=== PATIENT | female | born 1960 | race Caucasian/White ===

== ENCOUNTER 2016-12-27 08:31 | Emergency (ER) | payer OTHER ==
[~2016-12-27] VITALS: Ht 160 cm; Wt 68.8 kg
[2016-12-27 08:37] VITALS: TEMP 36.6; Ht 160 cm; Wt 68.8 kg
--- NOTE | 2016-12-27 08:55 | EMERGENCY ROOM VISIT NOTE ---
History Report prepared by Chacorta: Bear Perez Under the Supervision of: Dr. Marcello Dahl M.D. First contact with patient: 08:45 Chief Complaint: CHEST PAIN Stated Complaint: CHEST PAIN/HEAVINESS, NAUSEA Nursing Triage Summary: Patient states approx 0100 while sleeping she woke up with chest pain "In my back...and severe heartburn". Point to pain in right upper back and right chest. Franklin nauseous, but it passed quickly. Franklin like there was pressure on her chest. Tried to sleep, started sweating, thought maybe menopause. States she still has the chest pressure (right chest) "not as much in my back". History of Present Illness The patient is a 56 year old female who presents to the Emergency Room with complaints of an episode of chest pain that occurred around 0100 this morning. She currently says the pain is not bad, and the only pain she has is in her back. The patient says that she woke up almost in a hot flash, and the pain started in her back. The pain then radiated to her chest and she felt a heavy feeling in her chest. She also felt nauseous and had chills. The patient notes that she has been getting headaches recently. The patient thought she had acid reflux, so she took Tums, but then she felt like vomiting. The feeling shortly went away, and she was then able to go to bed. The patient did start sweating when she went back to sleep. She denies any vomiting or leg pain. The patient has no history of heart or lung problems. The patient has a history of hypertension, and the patient's says the patient may have had a TIA in the past. The patient does not smoke and is not diabetic. She notes no problems historically with indigestion, and she does not think she ate anything yesterday that would cause indigestion. The patient does not get her period anymore. Source of History: patient, family Onset: Around 0100 this morning Position: chest Symptom Intensity: lasted 1 hour Timing: other (episode) Associated Symptoms: + back pain, + chills, + nausea, No vomiting Note: Associated symptoms: Heavy feeling in chest. Denies leg pain. Review of Systems All systems have been listed, reviewed, and are negative other than those previously mentioned. Please see Additional Medical History Sheet. Past Medical & Surgical Surgical Problems: (1) Hx of appendectomy (2) Hx of tonsillectomy Family History Cancer Diabetes mellitus Gallbladder disease Heart disease Hypertension Kidney disease Lung disease Social History Smoking Status: Never Smoker Marital Status: Housing Status: lives with family Occupation Status: employed Current/Historical Medications Scheduled Estrog Conj/Medryoxyprog Acet (Prempro 0.3MG/1.5MG), 1 TAB PO HS Scheduled PRN Ibuprofen Tab (Motrin), 600 MG PO Q6H PRN for Pain Allergies Coded Allergies: Nitrofurantoin (Unverified Allergy, Severe, VOMITTING/BLOOD IN STOOL, 12/27) Nickel (Unverified Allergy, Mild, RASH, 12/27/16) Uncoded Allergies: SULFA DRUGS (Allergy, Intermediate, HIVES, 12/27/16) BURNING, BLISTERING, RASH Physical Exam Vital Signs Date Time Temp Pulse Resp B/P Pulse Ox O2 Delivery O2 Flow Rate FiO2 12/27/16 13:54 83 18 140/83 97 12/27/16 11:31 61 138/79 12/27/16 11:00 57 18 145/77 97 Room Air 12/27/16 09:02 99 Room Air 12/27/16 09:01 88 16 170/79 100 Room Air 12/27/16 08:54 61 12/27/16 08:41 97 12/27/16 08:37 36.6 66 18 191/85 97 Room Air Physical Exam GENERAL: Patient awake, alert, oriented x 3. Patient follows commands. Patient does not appear toxic. Patient is adequately hydrated and well- nourished. SKIN: No erythema, pallor, cyanosis or rash HEENT: Normal head, pupils equal, reactive to light and accommodation. Oral cavity and posterior pharynx appear normal. Neck: Without adenopathy, no neck vein distention. LUNGS: Clear to auscultation. No wheezes, no rales, no rhonchi. HEART: No murmurs. No gallops. No rubs ABDOMEN: No masses, no rebound, no hepatomegaly or splenomegaly. EXTREMITIES: No signs of trauma. No pedal or pretibial edema. No calf or thigh tenderness. NEUROLOGIC: Cranial nerves II-XII within normal limits. No gross motor sensory function deficits. Medical Decision & Procedures ER Provider Diagnostic Interpretation: X ray results are stated below per my interpretation and the radiologist's interpretation. CHEST 2 VIEWS ROUTINE CLINICAL HISTORY: Atypical chest pain COMPARISON STUDY: No previous studies for comparison. FINDINGS: The cardiac and mediastinal contours are normal. There is no evidence of focal pulmonary consolidation. There is no evidence of failure. No pleural effusions are visualized.[ IMPRESSION: No active disease in the chest. Electronically signed by: Richi Milligan M.D. 12/27/2016 10:22 AM Dictated Date/Time: 12/27/2016 10:22 AM Laboratory Results 12/27/16 09:05 12/27/16 09:05 Test 12/27/16 09:05 12/27/16 11:02 Red Blood Count 4.58 M/uL (4.2-5.4) Mean Corpuscular Volume 96.3 fL (80-100) Mean Corpuscular Hemoglobin 33.0 pg (25-34) Mean Corpuscular Hemoglobin Concent 34.2 g/dl (32-36) RDW Standard Deviation 47.0 fL (36.4-46.3) RDW Coefficient of Variation 13.4 % (11.5-14.5) Mean Platelet Volume 10.0 fL (7.4-10.4) Anion Gap 10.0 mmol/L (3-11) Est Creatinine Clear Calc Drug Dose 69.6 ml/min Estimated GFR () 90.0 Estimated GFR (Non- 77.7 BUN/Creatinine Ratio 17.1 (10-20) Calcium Level 8.7 mg/dl (8.5-10.1) Bedside Troponin I 0.000 ng/ml (0-0.045) Laboratory results as stated above per my review. Medications Administered Medications (Trade) Dose Ordered Sig/Brunilda Route Start Time Stop Time Status Last Admin Dose Admin Perflutren Lipid Microsphere (Definity) 2 ml ONE ONCE IV 12/27/16 13:32 12/27/16 13:33 DC 12/27/16 13:32 2 ML ECG Indication: chest pain Rate (beats per minute): 62 Rhythm: normal sinus Findings: no acute ischemic change, no ectopy ED Course 0846: Past medical records reviewed. The patient was evaluated in room A4B. A complete history and physical examination was performed. 1339: I reevaluated the patient she passed the echo stress test. 1405: Upon reevaluation, the patient appeared to have improvement of her symptoms. I discussed today's findings with her. She verbalized agreement of the treatment plan. She was discharged home. Medical Decision Differential diagnosis: Etiologies such as cardiac ischemia, aortic dissection, pulmonary embolism, pneumonia, pneumothorax, musculoskeletal, infections, pericarditis, myocarditis , esophageal rupture, gastrointestinal, as well as others were entertained. Multiple labs, EKG and imaging were obtained. Please see above. The patient has no EKG or cardiac marker changes. The patient had atypical chest pain. She was sent for stress test which she passed. I spoke with Dr. Josué Moran regarding her test. She did have some other symptoms but not chest related. I believe the patient can safely return home. She will need follow-up by her family physician. Impression Primary Impression: Substernal precordial chest pain Scribe Attestation The scribe's documentation has been prepared under my direction and personally reviewed by me in its entirety. I confirm that the note above accurately reflects all work, treatment, procedures, and medical decision making performed by me. Departure Information Dispostion Home / Self-Care Prescriptions Ibuprofen Tab (MOTRIN) 600 Mg Tab 600 MG PO Q6H Y for Pain, #20 TAB Prov: Marcello Dahl M.D. 12/27/16 Referrals No Doctor, Assigned (PCP) Patient Instructions ED Chest Pain Atypical Unkn Cause, My [facility] Additional Instructions Follow-up with your family physician within the next 10 days. 600 mg ibuprofen every 6 hours as needed for pain.
[2016-12-27 09:02] VITALS: O2SAT 99
[2016-12-27 09:14] LABS: HEMATOCRIT 44.1 % (37-47); MEAN CELL VOLUME 96.3 fL (80-100); MEAN CORPUSCULAR HGB CONC 34.2 g/dl (32-36); PLATELET COUNT 212 K/uL (130-400); RED BLOOD COUNT 4.58 M/uL (4.2-5.4); WHITE BLOOD COUNT 7.06 K/uL (4.8-10.8)
[2016-12-27 09:30] LABS: BUN/CREATININE RATIO 17.1 (10-20); CALCIUM 8.7 mg/dl (8.5-10.1); CREATININE 0.84 mg/dl (0.60-1.20)
--- NOTE | 2016-12-27 10:24 | DIAGNOSTIC IMAGING REPORT ---
CHEST 2 VIEWS ROUTINE CLINICAL HISTORY: Atypical chest pain COMPARISON STUDY: No previous studies for comparison. FINDINGS: The cardiac and mediastinal contours are normal. There is no evidence of focal pulmonary consolidation. There is no evidence of failure. No pleural effusions are visualized.[ IMPRESSION: No active disease in the chest. Electronically signed by: Richi Milligan M.D. 12/27/2016 10:22 AM Dictated Date/Time: 12/27/2016 10:22 AM
[2016-12-27] MEDS ORDERED: PRIMPRO PO (11:57)
[2016-12-27] MEDS ORDERED: CONJ0.3T3 PO (11:59)
[2016-12-27] MEDS ORDERED: PERFLUTREN LIPID MICROSPHERE (DEFINITY) IV ONE (13:32)
[2016-12-27 13:54] VITALS: BP 140/83; PULSE 83; O2SAT 97
[2016-12-27] MEDS ORDERED: IBUP-1427 PO (14:04)
--- NOTE | 2016-12-27 18:25 | DOBUTAMINE ECHO ---
*NOTICE TO RECEIVING [employer] This information is strictly Confidential and protected under [place] law. [place] law prohibits you from making any further disclosure of this information unless further disclosure is expressly permitted by the written consent of the person to whom it pertains or is authorized by law. A general authorization for the release of medical or other information is not sufficient for this purpose. Hospital accepts no responsibility if the information is made available to any other person, INCLUDING THE PATIENT. Interpretation Summary * Name: LUCHO WOODS Study Date: 12/27/2016 11:48 AM BP: 143/66 mmHg * Patient Location: [facility] HR: 71 * : 1960 (M/d/yyyy) Gender: Female Height: 63 in * Age: 56 yrs Ethnicity: [place] Weight: 151 lb * Ordering Physician: Marcello Dahl * Performed By: Milvia Hollingsworth RDCS * * Reason For Study: Chest pain * BSA: 1.7 m2 * -- Conclusions -- * Stress Echo: * 1. Negative stress echo images for ischemia at 90% MPHR. * 2. Negative exercise ECG for ischemia at 90% MPHR. * 3. Several symptomatic complaints throughout exercise. She initially complained of throat tightness which resolved while exercising. She then developed mild dyspnea. This was followed by a left jaw pain, left ear pain, and left-sided headache. * 4. Hypertensive response to exercise. * 5. No arrhythmia. * 6. Good exercise tolerance. * 7. Technically difficult study, enhanced with IV Definity. * Echo: * 1. Normal left ventricular size and systolic function. EF 60-65%. No regional wall motion abnormalities. No left ventricular hypertrophy. Type 1 diastolic dysfunction. * 2. Mild tricuspid regurgitation. * 3. Normal estimated right ventricular systolic pressure; 20 mmHg. * 4. No prior study available for comparison. Procedure Details * ECHOEX, CPT #[id number] * ECHO DOPPLER, CPT #[id number] * ECHO COLOR FLOW, CPT #[id number] * A contrast injection of Definity was performed to improve assessment of LV function. * Contrast was injected into an intravenous site in the left arm. * One vial of Definity ultrasound contrast was diluted in normal saline to a total volume of 10 ml. A total of '4' ml of solution was administered during imaging. * Lot # [id number] of Definity utilized for procedure. * Expiration date NOV 24. * The attending nurse who injected the contrast agent was Tootie Augustin RN. Left Ventricle * The left ventricle is normal in size. * There is normal left ventricular wall thickness. * Ejection Fraction = 60-65%. * Resting wall motion: Normal. Stress wall motion: Appropriate increase in Left ventricular systolic function and decrease in cavity size. No stress induced segmental wall motion abnormalities. * The left ventricular ejection fraction increases normally with stress. The left ventricular end-systolic cavity size reduces post-stress (normal response). The left ventricular wall motion with stress is normal. Right Ventricle * The right ventricle is normal in size and function. * The right ventricular systolic function is normal as assessed by tricuspid annular plane systolic excursion (TAPSE) (normal >1.5 cm). Atria * The left atrial size is normal. * Right atrial size is normal. * There is no evidence of atrial septal defect, but resolution does not allow assessment for a patent foramen ovale. Mitral Valve * The mitral valve leaflets appear normal. There is no evidence of stenosis, fluttering, or prolapse. * There is trace mitral regurgitation. Tricuspid Valve * The tricuspid valve is not well visualized, but is grossly normal. * There is no tricuspid stenosis. * There is mild tricuspid regurgitation. Aortic Valve * The aortic valve is trileaflet. * No hemodynamically significant valvular aortic stenosis. * No aortic regurgitation is present. Pulmonic Valve * The pulmonary valve is inadequately visualized, but the Doppler data is adequate for interpretation. * There is no significant pulmonary regurgitation. Great Vessels * The aortic root is normal size. * Ascending aorta of normal dimension * Aortic arch of normal dimension. * Normal pulmonary venous flow pattern. Normal IVC size and inspiratory collapse. Pericardium * There is no pericardial effusion. Stress Parameters * Sinus bradycardia at 58 bpm. * No diagnostic ST changes. No arrhythmia. * The stress portion of this study was personally supervised by the undersigned interpreting physician. * Rest heart rate was '71' BPM. * Rest blood pressure was '143/66' * Maximum heart rate achieved was 148 bpm. * Maximum heart rate was 90 % of maximum age-predicted heart rate. * Maximum blood pressure was '210/82' * Total exercise time was '9:13' * Maximum exercise MET level achieved was '10.40' METS * Maximum treadmill speed was '4.20' miles per hour. * Maximum treadmill elevation was '16.00'% grade. * Exercise was terminated due to 'hypertension' * Exercise-induced hypertension. Left Ventricular Diastolic Function * Grade I diastolic dysfunction, (abnormal relaxation pattern). MMode 2D Measurements and Calculations IVSd 1.0 cm LVIDd 4.5 cm LVIDs 2.8 cm LVPWd 0.91 cm IVS/LVPW 1.1 FS 38.2 % EDV(Teich) 90.9 ml ESV(Teich) 28.5 ml EF(Teich) 68.6 % EDV(cubed) 89.1 ml ESV(cubed) 21.0 ml EF(cubed) 76.4 % LV mass(C)d 143.3 grams LV mass(C)dI 83.5 grams/m\S\2 SV(Teich) 62.3 ml SI(Teich) 36.3 ml/m\S\2 SV(cubed) 68.1 ml SI(cubed) 39.7 ml/m\S\2 Ao root diam 3.1 cm Ao root area 7.4 cm\S\2 ACS 1.3 cm LA dimension 3.2 cm asc Aorta Diam 2.9 cm LA/Ao 1.0 LVOT diam 2.0 cm LVOT area 3.1 cm\S\2 LVAd ap4 22.3 cm\S\2 LVLd ap4 6.7 cm EDV(MOD-sp4) 61.4 ml EDV(sp4-el) 63.5 ml LVAs ap4 11.0 cm\S\2 LVLs ap4 5.2 cm ESV(MOD-sp4) 20.3 ml ESV(sp4-el) 19.8 ml EF(MOD-sp4) 66.9 % EF(sp4-el) 68.8 % LVAd ap2 20.6 cm\S\2 LVLd ap2 6.9 cm EDV(MOD-sp2) 52.0 ml EDV(sp2-el) 52.3 ml LVAs ap2 10.3 cm\S\2 LVLs ap2 5.7 cm ESV(MOD-sp2) 15.9 ml ESV(sp2-el) 15.9 ml EF(MOD-sp2) 69.4 % EF(sp2-el) 69.5 % LVLd %diff 3.5 % EDV(MOD-bp) 55.8 ml LVLs %diff 8.1 % ESV(MOD-bp) 18.4 ml EF(MOD-bp) 67.0 % SV(MOD-sp4) 41.1 ml SI(MOD-sp4) 24.0 ml/m\S\2 SV(MOD-sp2) 36.1 ml SI(MOD-sp2) 21.0 ml/m\S\2 SV(MOD-bp) 37.4 ml SI(MOD-bp) 21.8 ml/m\S\2 SV(sp4-el) 43.7 ml SI(sp4-el) 25.5 ml/m\S\2 SV(sp2-el) 36.3 ml SI(sp2-el) 21.2 ml/m\S\2 Doppler Measurements and Calculations MV E max hillary 70.1 cm/sec MV A max hillary 82.4 cm/sec MV E/A 0.85 MV dec time 0.18 sec Ao V2 max 112.5 cm/sec Ao max PG 5.1 mmHg Ao max PG (full) 1.8 mmHg STEVO(V,A) 2.5 cm\S\2 STEVO(V,D) 2.5 cm\S\2 LV V1 max PG 3.3 mmHg LV V1 max 90.8 cm/sec TV E max hillary 53.2 cm/sec PA V2 max 73.3 cm/sec PA max PG 2.1 mmHg PA acc slope 349.0 cm/sec\S\2 PA acc time 0.17 sec TR max hillary 206.9 cm/sec RVSP(TR) 20.1 mmHg RAP systole 3.0 mmHg PA pr(Accel) 4.5 mmHg
== END 2016-12-27 14:21 | disposition home or self-care (01) ==
LOC: C.EDB 08:34 → C.EDA 14:21
DX: R07.2 Precordial pain (principal); Z83.3 Family history of diabetes mellitus; Z82.49 Family history of ischemic heart disease and other diseases of the circulatory system